=== PATIENT | female | born 1980 | race Caucasian/White ===

== ENCOUNTER 2023-03-03 13:34 | Emergency (ER) | payer OTHER, SELFPAY ==
[2023-03-03 13:54] VITALS: BP 183/122; PULSE 92; RESP 20; TEMP 37; O2SAT 98; BMI 35.7
[2023-03-03 14:07] VITALS: O2SAT 97
--- NOTE | 2023-03-03 14:08 | CRLHL7_ITS ---
For Patients: As a result of the Century Cures Act, medical imaging exams and procedure reports are released immediately into your electronic medical record. You may view this report before your referring provider. If you have questions, please contact your health care provider. INDICATION: Elevated blood pressure; had pressures ; Facial tingling. Comparison : None. TECHNIQUE: CT head without intravenous contrast; coronal sagittal reformats. FINDINGS: No intracranial hemorrhage. No mass lesions. No evidence of shift of the midline structures. The calvarium is unremarkable. the ventricular system, the subarachnoid cisterns and the cerebral sulci are unremarkable. IMPRESSION: Negative unenhanced head CT. Please note that all CT scans at this facility use dose modulation, iterative reconstruction, and/or weight-based dosing when appropriate to reduce radiation dose to as low as reasonably achievable. Dictated by Lupe Kirkpatrick MD @ 03/03/2023 3:13:47 PM (Electronically Signed)
--- NOTE | 2023-03-03 14:08 | CRLHL7_ITS ---
For Patients: As a result of the Century Cures Act, medical imaging exams and procedure reports are released immediately into your electronic medical record. You may view this report before your referring provider. If you have questions, please contact your health care provider. INDICATION: Elevated blood pressure. TECHNIQUE: Chest 1 view(s) COMPARISON: None. FINDINGS: Cardiomediastinal silhouette and pulmonary vasculature are normal. No focal consolidation. No pleural effusion, no pneumothorax. No acute chest wall abnormality. IMPRESSION: Unremarkable chest radiograph. Dictated by Hipolito Toscano MD @ 03/03/2023 3:51:58 PM (Electronically Signed)
--- NOTE | 2023-03-03 14:09 | ED_ITS ---
HPI - General Adult General Time Seen by Provider: 14:09 Date Seen: 03/03/23 Chief complaint: Hypertension Stated complaint: Heart attack concern--chest pain, 202/130 BP Time Seen by Provider: 03/03/23 13:53 Source: patient and RN notes reviewed Mode of arrival: ambulatory Limitations: no limitations History of Present Illness HPI narrative: Patient is a 43-year-old female coming in with concern of an elevated blood pressure. She notes that she has had borderline high blood pressure for some time. She has been having some headaches, significant eye pressure bilaterally. She was seen spots. Today she started noting tingling all over her face. She checked her blood pressure herself and was 160/120, had a colleague check it for her and it was 202/130. She notes that she can bring it down with diet and exercise but that she is unhealthy. She also does suffer with migraines with auras. She does not note any incoordination numbness tingling in her extr emities. It was all over her face when she felt this today. She did feel like she had some chest pressure, palpitations but that is resolved. She is lying in exam room for in feels like she is improving. She notes her cholesterol has been borderline high. She does smoke. No diagnosis of diabetes. Her dad had his 1st heart attack at age 45. She has not been on blood pressure medicine before. She thinks she has cameron menopausal but is still getting periods. She does drink alcohol moderately about 3 times a week. Related Data Previous Rx's Medication Instructions Recorded duloxetine 30 mg capsule,delayed 30 mg PO QDAY #90 caps 08/11/22 release lisinopril 5 mg tablet 5 mg PO DAILY #30 tabs 03/03/23 Allergies Allergy/AdvReac Type Severity Reaction Status Date / Time penicillin V Allergy Mild Rash Verified 08/11/22 15:10 Review of Systems Status of ROS: Reports: 10 or more systems reviewed and unremarkable except as noted in History and below [facility] Surgical History History of section ?Z98.891 - History of uterine scar from previous surgery (ICD-10) Social History Narrative: Smoker- 1 to 5 cigs a day Depo contraception Smoking Status: Current every day smoker Non-prescribed substance use: denies use Little interest or pleasure in doing things: more than half the days Feeling down, depressed, or hopeless: not at all Exam Const: Vital Signs, click to edit/add: Vital Signs - 24 hr 03/03/23 13:54 03/03/23 14:07 03/03/23 16:27 Temperature 98.6 F Pulse Rate [Pulse Oximeter] 92 84 Respiratory Rate 20 17 Blood Pressure [Ri ght Upper Arm] 183/122 H 144/86 H Pulse Oximetry 98 97 97 Oxygen Delivery Me thod Room Air Documenting provider has reviewed patient's vital signs: yes Common normals: no apparent distress, oriented x3, no limitations, healthy appearing, alert and well nourished General appearance: cooperative, comfortable and well kempt Nutritional appearance: overweight HENMT: Common normals: normocephalic, head/scalp atraumatic, hearing grossly normal bilaterally, external ears normal and external nose normal Head and scalp: normocephalic and atraumatic Face and sinus: normal facial exam Nose: external nose normal External ear: external ears normal Eye: Common normals: PERRL, EOMs intact bilaterally, conjunctivae normal and no scleral icterus Conjunctiva: conjunctiva(e) normal Pupil: PERRL Neck & C-Spine: Common normals: full ROM, no lymphadenopathy, supple, no meningeal signs, no JVD and thyroid normal Thyroid: thyroid normal Resp: Common normals: normal respiratory effort, no retractions, no use of accessory muscles and clear to auscultation bilaterally Auscultation: clear to auscultation bilaterally Cardio: Common normals: no JVD, regular rate, regular rhythm, S1 normal heart sound, S2 normal heart sound, no gallops, no clicks and no murmurs Rate: regular rate Rhythm: regular rhythm Heart sounds: S1 normal and S2 normal GI: Common normals: Normal to inspection, nondistended, normoactive bowel sounds present, soft to palpation, non-tender, no hepatosplenomegaly and no masses Palpation: soft and no hepatosplenomegaly Extremity: Common normals: normal to inspection and no pedal edema Neuro: Common normals: oriented x3, CN's II-XII intact bilaterally, moves all extremities, no focal motor deficits and gait normal Sensorium/orientation: alert Meningeal signs: no meningeal signs Speech: speech normal Psych: Appearance: well kempt Course Course Hospital Course: Reviewed with patient that she certainly can have increased headache from blood pressure but there is no evidence of any [employer]IL [employer] focal deficits at this time. I do think that she should have a head CT still. If there were evidence of [employer] vascular disease, does change our management in the fact that would probably recommend anti day cholesterol, anti-platelet as well as intensive management of her blood pressure. Will be getting full complement of labs, EKG. She will be on cardiac monitoring and pulse oximetry here. Will monitor her blood pressure here. This is definitely time for her to consider lifestyle changes in management. I may recommend an antihypertensive medication based on her outcome here today. Will await our workup. Reevaluation(s) Reevaluation #1: Reviewed with patient her normal workup. She feels better and her blood press ure is now down to 140/92 after resting. We discussed antihypertensive medicines. She would prefer to go on something. She can try lifestyle modification with smoking cessation, heart healthy/low-sodium diet, exercise and weight loss. If she successful in all these lie cell changes, may be possible she can go off blood pressure medicine. She did share with me that she had HELLP syndrome with 1 of her pregnancies. Did review with her that that does put her at higher risk for hypertension. Time: 16:55 Vital Signs Vital signs: Initial Vital Signs Temperature 98.6 F 03/03/23 13:54 Temperature Source Temporal Artery Scan 03/03/23 13:54 Pulse Rate 92 03/03/23 13:54 Respiratory Rate 20 03/03/23 13:54 Respiratory Effort Normal 03/03/23 13:54 Respiratory Depth Normal 03/03/23 13:54 Respiratory Pattern Normal 03/03/23 13:54 Blood Pressure 183/122 H 03/03/23 13:54 Blood Pressure Mean 142 H 03/03/23 13:54 Pulse Oximetry 98 03/03/23 13:54 Oxygen Delivery Method Room Air 03/03/23 13:54 Vital Signs Temperature 98.6 F 03/03/23 13:54 Pulse Rate 92 03/03/23 13:54 Respiratory Rate 20 03/03/23 13:54 Blood Pressure 183/122 H 03/03/23 13:54 Pulse Oximetry 98 03/03/23 13:54 Oxygen Delivery Method Room Air 03/03/23 13:54 Temperature 98.6 F 03/03/23 13:54 Pulse Rate 84 03/03/23 16:27 Respiratory Rate 17 03/03/23 16:27 Blood Pressure 144/86 H 03/03/23 16:27 Pulse Oximetry 97 03/03/23 16:27 Oxygen Delivery Method Room Air 03/03/23 13:54 Medical Decision Making Lab Data Lab results reviewed: Yes I reviewed the patient's lab results Labs: Lab Results 03/03/23 Range/Units 14:36 WBC 9.16 (4.50-11.00) K/uL RBC 4.22 (4.00-5.20) m/uL Hgb 14.3 (12.0-16.0) gm/dL Hct 40.8 (33.0-51.0) % MCV 97 (80-100) fL MCH 34 (26-34) pg MCHC 35 (32-36) gm/dL RDW Coeff of Abelardo 12.5 (11.5-15.5) % Plt Count 310 (140-440) K/uL Neut % (Auto) 61.8 (42.0-72.0) % Lymph % (Auto) 29.1 (20-44) % [place] % (Auto) 6.8 (0.0-11.0) % Eos % (Auto) 1.0 (0.0-7.0) % Baso % (Auto) 0.4 (0.0-3.0) % Neut # (Auto) 5.66 (1.7-7.0) K/uL Lymph # (Auto) 2.67 (0.90-2.90) K/uL [place] # (Auto) 0.60 (0.00-0.90) K/UL Eos # (Auto) 0.09 (0.00-0.50) K/uL Baso # (Auto) 0.04 (0.00-0.30) K/uL Sodium 135 (135-149) mmol/L Potassium 3.5 L (3.6-5.1) mmol/L Chloride 104 (96-114) mmol/L Carbon Dioxide 25 (20-32) mmol/L BUN 13 (5-24) mg/dL Creatinine 0.5 (0.5-1.5) mg/dL Estimated Creat Clear 113.56 Estimated GFR 119 ml/min Glucose 99 (60-115) mg/dL Calcium 9.2 (8.4-10.6) mg/dL Total Bilirubin 0.3 (0.1-1.5) mg/dL AST 23 (12-35) U/L ALT 25 (4-35) U/L Alkaline Phosphatase 58 (40-150) U/L Troponin I < 0.01 L (0.01-0.04) ng/mL NT-Pro-B Natriuret Pep < 20 pg/mL Total Protein 7.2 (6.0-8.3) g/dL Albumin 4.4 (3.3-5.0) g/dL Imaging Data Chest x-ray: Attestation: I have reviewed the pertinent imaging results. My impression: No acute pathology on my preliminary review. Radiologist's impression: Patient: INDY CELESTE Facility:?[facility] Patient ID:?[id number] Site Patient ID:?[id number]. Site :?1980 Study:?XRay Chest 1 VIEW-03/03/2023 2:22:23 PM Ordering Physician:?Vlad Beach Final Report: INDICATION: Elevated blood pressure. TECHNIQUE: Chest 1 view(s) COMPARISON: None. FINDINGS: Cardiomediastinal silhouette and pulmonary vasculature are normal. No focal consolidation. No pleural effusion, no pneumothorax. No acute chest wall abnormality. IMPRESSION: Unremarkable chest radiograph. Dictated by Hipolito Toscano MD @ 03/03/2023 3:51:58 PM (Electronic Signature) CT scan - head: Attestation: I have reviewed the pertinent imaging results. My impression: I did not appreciate any acute pathology on my preliminary review. Radiologist's impression: Patient: INDY CELESTE Facility:?[facility] Patient ID:?[id number] Site Patient ID:?[id number]. Site :?1980 Study:?CT Head W/O-03/03/2023 2:21:27 PM Ordering Physician:Yousuf Beach Final Report: INDICATION: Elevated blood pressure; had pressures ; Facial tingling. Comparison : None. TECHNIQUE: CT head without intravenous contrast; coronal sagittal reformats. FINDINGS: No intracranial hemorrhage. No mass lesions. No evidence of shift of the midline structures. The calvarium is unremarkable. the ventricular system, the subarachnoid cisterns and the cerebral sulci are unremarkable. IMPRESSION: Negative unenhanced head CT. Please note that all CT scans at this facility use dose modulation, iterative reconstruction, and/or weight-based dosing when appropriate to reduce radiation dose to as low as reasonably achievable. Dictated by Lupe Kirkpatrick MD @ 03/03/2023 3:13:47 PM (Electronic Signature) ECG Data Attestation: I personally reviewed and interpreted this ECG as follows: (Normal sinus rhythm, 87 beats per minute. No ischemic changes. QT corrected 442 milliseconds.) Prior ECG tracings: not available for review Critical Care Time Critical Care Time Critical Care Time: No Discharge Plan Discharge Clinical Impression: Hypertension Patient Disposition: Home, Self-Care Condition: Improved Instructions: Heart Healthy Diet (ED), Low-Sodium Diet (ED), Hypertension (ED) Additional Instructions: Need to schedule follow-up appointment in clinic in about 2 weeks time. You should come fasting to that appointment so that they can recheck a cholesterol panel if it is appropriate. Your chemistries with a basic metabolic panel needs to be rechecked at that time to recheck the kidney function and potassium. Try to quit smoking, talk to your primary care provider about this at your follow- up. Do recommend exercise, weight loss, low-sodium and heart healthy diet. We will start you on lisinopril 5 mg daily, may need to be increased over time. Activity Level: Activity as Tolerated Discharge Diet: Heart Healthy (2 gm sodium, low fat) Prescriptions: New lisinopril 5 mg tablet 5 mg PO DAILY Qty: 30 0RF No Action duloxetine 30 mg capsule,delayed release(DR/EC) 30 mg PO QDAY Qty: 90 3RF Follow Up/Referrals: Cassi Hendricks PA-C [Primary Care Provider] - Stand Alone Forms: [facility] Info Instructions
[2023-03-03 14:50] LABS: Basophils Absolute Auto 0.04 K/uL (0.00-0.30); Basophils Percent Auto 0.4 % (0.0-3.0); Eosinophils Absolute Auto 0.09 K/uL (0.00-0.50); Hematocrit 40.8 % (33.0-51.0); Hemoglobin* 14.3 gm/dL (12.0-16.0); Immature Granulocytes Abs Auto 0.08 K/uL (0.00-0.30); Immature Granulocytes Pct Auto 0.9 %; Lymphocytes Absolute Auto 2.67 K/uL (0.90-2.90); Lymphocytes Percent Auto 29.1 % (20-44); Mean Corpuscular HGB Conc 35 gm/dL (32-36); Mean Corpuscular Hemoglobin 34 pg (26-34); Mean Corpuscular Volume 97 fL (80-100); Monocytes Percent Auto 6.8 % (0.0-11.0); Neutrophils Absolute Auto 5.66 K/uL (1.7-7.0); Neutrophils Percent Auto 61.8 % (42.0-72.0); Platelet Count* 310 K/uL (140-440); RDW Coefficient of Variation % 12.5 % (11.5-15.5); Red Blood Count 4.22 m/uL (4.00-5.20); White Blood Count* 9.16 K/uL (4.50-11.00)
[2023-03-03 14:56] LABS: Slide Review Reflex No
[2023-03-03 15:00] LABS: Albumin* 4.4 g/dL (3.3-5.0); Chloride* 104 mmol/L (96-114); Sodium* 135 mmol/L (135-149)
[2023-03-03 15:01] LABS: Potassium* 3.5 mmol/L (3.6-5.1)
[2023-03-03 15:03] LABS: Alanine Aminotransferase* 25 U/L (4-35); Alkaline Phosphatase* 58 U/L (40-150); Aspartate Amino Transferase* 23 U/L (12-35); Bilirubin Total* 0.3 mg/dL (0.1-1.5); Blood Urea Nitrogen* 13 mg/dL (5-24); Carbon Dioxide* 25 mmol/L (20-32); Creatinine* 0.5 mg/dL (0.5-1.5); Est. Creatinine Clearance* 113.56; Estimated Glomerular Filt Rate 119 ml/min; Glucose* 99 mg/dL (60-115); Total Protein* 7.2 g/dL (6.0-8.3)
[2023-03-03 15:04] LABS: Calcium* 9.2 mg/dL (8.4-10.6)
[2023-03-03 15:14] LABS: NT Pro B Type NatriureticPept* < 20 pg/mL
[2023-03-03 15:37] LABS: Troponin I* < 0.01 ng/mL (0.01-0.04)
[2023-03-03 16:27] VITALS: BP 144/86; PULSE 84; RESP 17; O2SAT 97
== END 2023-03-03 17:08 | disposition home or self-care (01) ==
PROVIDERS: Emergency Provider Family Medicine; PCP Physician Assistant Medical
DX: I10 Essential (primary) hypertension (principal)
CPT/HCPCS: 36415; 70450; 71045; 80053; 83880; 84484; 85025; 93005; 94761; 99284; 99285

== ENCOUNTER 2023-05-21 00:17 | Emergency (ER) | payer OTHER, SELFPAY ==
[2023-05-21 00:35] VITALS: BP 133/83; PULSE 111; RESP 20; TEMP 35.6; O2SAT 95; BMI 36.6
--- NOTE | 2023-05-21 00:46 | CRLHL7_ITS ---
For Patients: As a result of the 21st Century Cures Act, medical imaging exams and procedure reports are released immediately into your electronic medical record. You may view this report before your referring provider. If you have questions, please contact your health care provider. INDICATION: Abdominal pain and hematuria. Abdominal pain and fall. Elevated BUN and creatinine, elevated white count. COMPARISON: None available. TECHNIQUE: CT examination of the abdomen and pelvis was performed with the uneventful intravenous administration of 98 cc of Isovue 370 while 3 mm thick axial sections were obtained from the lung bases through the pubic symphysis. Oral contrast was not administered. Please note that all CT scans at this facility use dose modulation, iterative reconstruction, and/or weight-based dosing when appropriate to reduce radiation dose to as low as reasonably achievable. FINDINGS: There is moderate ascites. The urinary bladder has thickening of its dome and a defect within the central portion of the dome measuring 2.1 x 1.6 centimeters, axial image 139 series 2 and coronal image 66 series 4. The defect allows free communication between the urinary bladder and the pelvic cavity, and the ascites is probably urinary ascites. There is mild mucosal thickening throughout the small bowel consistent with mild enteritis. This is probably enteritis secondary to the urinary ascites. In the abdomen, the liver, spleen, pancreas, and adrenals are normal in appearance. The kidneys are normal in appearance. The gallbladder is normal in appearance. The abdominal aorta is normal in caliber with no sign of dilatation. There is no sign of retroperitoneal mass or adenopathy. The stomach and right colon in the abdomen are normal in appearance. There is moderate diverticulosis of the descending colon with no sign of diverticulitis. In the pelvis, the appendix is nonvisualized, but there is no sign of an inflammatory process in the area of the appendix. There is moderate proximal sigmoid diverticulosis without evidence of diverticulitis. The rectum is otherwise normal in appearance. The left ovary has a 2.2 centimeter cyst. The right adnexal region and uterus are normal in appearance. The urinary bladder is normal in appearance. There is no sign of pelvic or inguinal mass or adenopathy. There is no sign of free air in the abdomen or pelvis. There is moderate posterior right basilar and lateral left basilar linear atelectasis. There is mild L2-3 disc degenerative disease. There is minimal scoliosis of the lumbar spine convex towards the left. IMPRESSION: Nothing seen to explain the patient`s abdominal pain, with no sign of bowel distension or inflammatory process involving the bowel. No sign of pancreatitis. There is a defect of the central dome of the urinary bladder associated with moderate ascites. The ascites is probably urinary ascites. Moderate mucosal thickening throughout the small bowel, probably enteritis secondary to urinary ascites. CT of the abdomen shows moderate diverticulosis of the descending colon with no sign of diverticulitis. CT of the pelvis shows moderate proximal sigmoid diverticulosis with no sign of diverticulitis. 2.2 centimeter left ovarian cyst. Please note that all CT scans at this facility use dose modulation, iterative reconstruction, and/or weight-based dosing when appropriate to reduce radiation dose to as low as reasonably achievable. Dictated by Margarito Santos MD @ 05/21/2023 2:26:21 AM (Electronically Signed)
--- NOTE | 2023-05-21 00:47 | ED.ABDPAIN ---
HPI - Abdominal Pain General Chief Complaint: Abdominal Pain Stated Complaint: abdominal pain, blood in her urine Time Seen by Provider: 05/21/23 00:30 History of Present Illness HPI narrative: Patient is a 43-year-old woman who comes in approximately 24 hours after falling outside her home while drinking wine. Patient landed flat on her abdomen and began having progressive abdominal pain since that time. She did not hit her head she did not lose consciousness she has no neck pain. No chest pain no shortness of breath orthopnea no PND. Patient had small bowel movement this morning and has been having bright red blood in her urine today. She has no bony pain no other significant symptoms. Patient is concerned about the abdominal pain and hematuria. Related Data Previous Rx's Medication Instructions Recorded duloxetine 30 mg capsule,delayed 30 mg PO QDAY #90 caps 08/11/22 release losartan 50 mg tablet 50 mg PO QDAY #90 tabs 04/06/23 Allergies Allergy/AdvReac Type Severity Reaction Status Date / Time penicillin V Allergy Mild Rash Verified 04/06/23 11:07 Review of Systems Status of ROS Reports: 10 or more systems reviewed and unremarkable except as noted in History and below [facility] Medical History HTN (hypertension) ?I10 - Essential (primary) hypertension (ICD-10) Surgical History History of section ?Z98.891 - History of uterine scar from previous surgery (ICD-10) Social History Narrative: Smoker- 1 to 5 cigs a day Depo contraception Smoking Status: Current some day smoker Non-prescribed substance use: denies use Little interest or pleasure in doing things: nearly every day Feeling down, depressed, or hopeless: more than half the days Exam Narrative: Exam Narrative: EXAM GENERAL: Patient appears comfortable and well. EYES: No scleral icterus. LYMPH: No supraclavicular or cervical lymphadenopathy. SKIN: Visible skin seen during exam normal or with benign process only. EXT: No dependent lower extremity pedal edema. HEART: Regular rate and rhythm with no murmurs, rubs, or gallops. LUNGS: Clear to auscultation bilaterally with no crackles or wheezes. ABD: Soft, non tender, non distended. PSYCH: Good eye contact, speech is not pressured. Const: Vital Signs, click to edit/add: Vital Signs - 24 hr 05/21/23 00:35 Temperature 96.1 F L Pulse Rate [Left P ulse Oximeter] 111 H Respiratory Rate 20 Blood Pressure [Ri ght Upper Arm] 133/83 Pulse Oximetry 95 Oxygen Delivery Me thod Room Air Course Course Hospital Course: Patient seen and examined. CBC comprehensive metabolic panel amylase UA CT abdomen pelvis ordered. Vital Signs Vital signs: Initial Vital Signs Temperature 96.1 F L 05/21/23 00:35 Temperature Source Temporal Artery Scan 05/21/23 00:35 Pulse Rate 111 H 05/21/23 00:35 Respiratory Rate 20 05/21/23 00:35 Blood Pressure 133/83 05/21/23 00:35 Blood Pressure Mean 99 05/21/23 00:35 Blood Pressure Position Semi-Fowlers 05/21/23 00:35 Pulse Oximetry 95 05/21/23 00:35 Oxygen Delivery Method Room Air 05/21/23 00:35 Vital Signs Temperature 96.1 F L 05/21/23 00:35 Pulse Rate 111 H 05/21/23 00:35 Respiratory Rate 20 05/21/23 00:35 Blood Pressure 133/83 05/21/23 00:35 Pulse Oximetry 95 05/21/23 00:35 Oxygen Delivery Method Room Air 05/21/23 00:35 Temperature 96.1 F L 05/21/23 00:35 Pulse Rate 111 H 05/21/23 00:35 Respiratory Rate 20 05/21/23 00:35 Blood Pressure 133/83 05/21/23 00:35 Pulse Oximetry 95 05/21/23 00:35 Oxygen Delivery Method Room Air 05/21/23 00:35 MDM - Abdominal Pain MDM Narrative Medical decision making narrative: Patient is a 43-year-old woman who fell 24 hours ago and presents with progressive abdominal pain. Patient has acute renal insufficiency noted on her lab work as well as leukocytosis. I did visit with the radiologist about her CT of the abdomen pelvis which shows a perforated bladder with a significant amount of urine in the peritoneum. I did send her urine for culture. Collected blood cultures x2 and I did dose her with cefepime as she is penicillin allergic. This time we are arranging transfer for definitive care. Patient is metabolically stable and has received a L of normal saline. Differential Diagnosis Differential diagnosis: Likely abdominal pain, acute appendicitis, calculus of kidney, constipation, diverticulitis, endometriosis, gastroenteritis, pancreatitis and small bowel obstruction Lab Data Labs: Lab Results 05/21/23 05/21/23 Range/Units 00:34 01:20 WBC 17.68 H (4.50-11.00) K/uL RBC 4.16 (4.00-5.20) m/uL Hgb 14.0 (12.0-16.0) gm/dL Hct 40.2 (33.0-51.0) % MCV 97 (80-100) fL MCH 34 (26-34) pg MCHC 35 (32-36) gm/dL RDW Coeff of Abelardo 12.9 (11.5-15.5) % Plt Count 382 (140-440) K/uL Neut % (Auto) 83.0 H (42.0-72.0) % Lymph % (Auto) 12.2 L (20-44) % [place] % (Auto) 4.3 (0.0-11.0) % Eos % (Auto) 0.2 (0.0-7.0) % Baso % (Auto) 0.1 (0.0-3.0) % Neut # (Auto) 14.70 H (1.7-7.0) K/uL Lymph # (Auto) 2.20 (0.90-2.90) K/uL [place] # (Auto) 0.80 (0.00-0.90) K/UL Eos # (Auto) 0.00 (0.00-0.50) K/uL Baso # (Auto) 0.00 (0.00-0.30) K/uL Abs Immat Gran (auto) 0.00 (0.00-0.30) K/uL Imm/Tot Granulo (auto) 0.2 % Sodium 131 L (135-149) mmol/L Potassium 3.9 (3.6-5.1) mmol/L Chloride 97 (96-114) mmol/L Carbon Dioxide 22 (20-32) mmol/L BUN 28 H (5-24) mg/dL Creatinine 3.8 H (0.5-1.5) mg/dL Estimated Creat Clear 14.94 Estimated GFR 14 ml/min Glucose 124 H (60-115) mg/dL Calcium 9.6 (8.4-10.6) mg/dL Total Bilirubin 0.6 (0.1-1.5) mg/dL AST 32 (12-35) U/L ALT 31 (4-35) U/L Alkaline Phosphatase 53 (40-150) U/L Total Protein 7.5 (6.0-8.3) g/dL Albumin 4.3 (3.3-5.0) g/dL Amylase 58 (18-89) U/L Urine Color Red A (Yellow) Urine Appearance Turbid A (Clear) Urine pH 6.0 (5.0-8.5) Ur Specific [place] 1.025 (1.000-1.030) Urine Protein 3+ A (Negative) Urine Glucose (UA) Negative (Negative) Urine Ketones 1+ A (Negative) Urine Blood 3+ A (Negative) Urine Nitrite Negative (Negative) Urine Bilirubin 1+ A (Negative) Urine Urobilinogen 0.2 (0.2-1.0) Ur Leukocyte Esterase 3+ A (Negative) Urine RBC >100 A (0-2) Urine WBC 25-50 A (0-5) Urine WBC Clumps None (None) Ur Squamous Epith Cells None (None-Few) Calcium Oxalate Crystal Moderate A (None) Urine Bacteria None (None) Discharge Plan Discharge Clinical Impression: Perforation of bladder Patient Disposition: Xfer Other Condition: Stable Activity Level: Other Discharge Diet: Other Prescriptions: No Action duloxetine 30 mg capsule,delayed release(DR/EC) 30 mg PO QDAY Qty: 90 3RF losartan 50 mg tablet 50 mg PO QDAY Qty: 90 0RF Follow Up/Referrals: Cassi Hendricks PARaymundoC [Primary Care Provider] - Stand Alone Forms: [employer] Info Instructions
[2023-05-21 00:51] LABS: Appearance Urine Turbid (Clear); Bilirubin Urine 1+ (Negative); Blood Urine 3+ (Negative); Color Urine Red (Yellow); Glucose Urine Negative (Negative); Ketones Urine 1+ (Negative); Leukocyte Esterase Urine 3+ (Negative); Nitrite Urine Negative (Negative); Protein Urine 3+ (Negative); Specific Gravity Urine 1.025 (1.000-1.030); Urobilinogen Urine 0.2 (0.2-1.0)
[2023-05-21 01:01] LABS: RBC Urine >100 (0-2); WBC Urine 25-50 (0-5)
[2023-05-21 01:02] LABS: Calcium Oxalate Crystals Urine Moderate
[2023-05-21 01:23] LABS: Basophils Percent Auto 0.1 % (0.0-3.0); Eosinophils Percent Auto 0.2 % (0.0-7.0); Hematocrit 40.2 % (33.0-51.0); Immature Granulocytes Pct Auto 0.2 %; Lymphocytes Percent Auto 12.2 % (20-44); Mean Corpuscular HGB Conc 35 gm/dL (32-36); Mean Corpuscular Hemoglobin 34 pg (26-34); Mean Corpuscular Volume 97 fL (80-100); Monocytes Percent Auto 4.3 % (0.0-11.0); Platelet Count* 382 K/uL (140-440); RDW Coefficient of Variation % 12.9 % (11.5-15.5); Red Blood Count 4.16 m/uL (4.00-5.20); White Blood Count* 17.68 K/uL (4.50-11.00)
[2023-05-21 01:25] LABS: Slide Review Reflex No
[2023-05-21 01:36] LABS: Albumin* 4.3 g/dL (3.3-5.0); Chloride* 97 mmol/L (96-114); Potassium* 3.9 mmol/L (3.6-5.1); Sodium* 131 mmol/L (135-149)
[2023-05-21 01:38] LABS: Amylase* 58 U/L (18-89); Carbon Dioxide* 22 mmol/L (20-32); Creatinine* 3.8 mg/dL (0.5-1.5); Est. Creatinine Clearance* 14.94; Estimated Glomerular Filt Rate 14 ml/min
[2023-05-21 01:39] LABS: Alanine Aminotransferase* 31 U/L (4-35); Alkaline Phosphatase* 53 U/L (40-150); Aspartate Amino Transferase* 32 U/L (12-35); Bilirubin Total* 0.6 mg/dL (0.1-1.5); Blood Urea Nitrogen* 28 mg/dL (5-24); Calcium* 9.6 mg/dL (8.4-10.6); Glucose* 124 mg/dL (60-115); Total Protein* 7.5 g/dL (6.0-8.3)
[2023-05-21 02:18] VITALS: BP 117/76; PULSE 91; RESP 18; TEMP 36.7; O2SAT 97
[2023-05-21] MEDS: 0.9 % SODIUM CHLORIDE 1000 ml 1,000 ML IV (02:19)
[2023-05-21] MEDS: KETOROLAC 30 MG/ML inj IVP (02:52)
[2023-05-21] MEDS: HYDROmorphone 0.5 mg/0.5 ml inj IVP (02:52)
[2023-05-21] MEDS: CEFEPIME HCL 1 GM in 0.9 % SODIUM CHLORIDE Mini-bag 100 ML IVPB (03:06)
[2023-05-21 03:18] VITALS: BP 117/76; PULSE 95; RESP 16; O2SAT 97
[2023-05-21 04:01] VITALS: BP 116/73; PULSE 90; RESP 16; O2SAT 98
--- NOTE | 2023-05-21 04:17 | ED.NURSE ---
Report to Jr Trinh accepting RN, and Antonietta Applications Support Lead. Patient left department via EMS cot en route to [facility] ED with all belongings.
--- NOTE | 2023-05-25 01:10 | ED.NURSE ---
opened chart to see where pt was transferred. called [facility] to give information about positive blood cultures. @ [phone]
== END 2023-05-21 04:19 | disposition other institution (70) ==
PROVIDERS: Emergency Provider Internal Medicine; PCP Physician Assistant Medical
DX: S37.29XA Other injury of bladder, initial encounter (principal); W19.XXXA Unspecified fall, initial encounter
CPT/HCPCS: 36415; 74177; 80053; 81001; 81003; 82150; 85025; 87040; 87076; 87086; 87181; 96365; 96375; 99284; J0692; J1170; J1885; J7030; Q9967

== ENCOUNTER 2023-05-21 04:08 | Outpatient (CLI) | payer OTHER, SELFPAY | END 2023-05-21 04:09 | disposition home or self-care (01) | LOC: AMB 05-30 18:48 | PROVIDERS: PCP Physician Assistant Medical; Visit Provider Internal Medicine | DX: R18.8 Other ascites (principal); K57.30 Diverticulosis of large intestine without perforation or abscess without bleeding; N83.202 Unspecified ovarian cyst, left side | CPT/HCPCS: A0425; A0426; A0433 ==

== ENCOUNTER 2023-09-27 14:33 | Outpatient (CLI) | payer OTHER, SELFPAY | END 2023-09-27 14:34 | disposition home or self-care (01) | LOC: NFLDREF 09-28 06:55 | PROVIDERS: PCP Physician Assistant Medical; Referring Provider Physician Assistant Medical; Visit Provider Physician Assistant Medical | DX: R30.0 Dysuria (principal); N30.00 Acute cystitis without hematuria | CPT/HCPCS: 87086; 87186 ==

== ENCOUNTER 2024-11-26 10:39 | Outpatient (CLI) | payer OTHER, SELFPAY | END 2024-11-26 10:40 | disposition home or self-care (01) | PROVIDERS: PCP Physician Assistant Medical; Visit Provider Family Medicine | DX: R00.0 Tachycardia, unspecified (principal) | CPT/HCPCS: 83835; 84439; 84443 ==

== ENCOUNTER 2024-12-04 17:11 | Outpatient (CLI) | payer OTHER, SELFPAY ==
--- NOTE | 2024-12-04 17:20 | CRLHL7_ITS ---
For Patients: As a result of the Cures Act, medical imaging exams and procedure reports are released immediately into your electronic medical record. You may view this report before your referring provider. If you have questions, please contact your health care provider. BILATERAL SCREENING MAMMOGRAM WITH COMPUTER-AIDED DETECTION AND TOMOSYNTHESIS TECHNIQUE: CC and MLO views were obtained. These mammographic images have been obtained using full-field digital technique. These mammographic images were interpreted with the benefit of computer-aided detection. Breast Tomosynthesis was used in this interpretation. COMPARISON FILM: 12/22/21, 08/30/19, 01/17/14. FINDINGS: There are scattered areas of fibroglandular density IMPRESSION: There is no radiographic evidence for malignancy. ASSESSMENT: BI-RADS Category 1: Negative RECOMMENDATION: Routine screening mammogram in 1 year. A lay language report of this examination will be provided to the patient. Shmuel Persaud M.D. Diagnostic Radiologist [email or web address] ADRIANA/kevin Transcribed: 3:02 p.kirstin brown/Dictated by: Shmuel Persaud MD @ 12/05/2024 10:21:00 AM (Electronically Signed)
== END 2024-12-04 17:12 | disposition home or self-care (01) ==
LOC: MAMMO 17:12
PROVIDERS: PCP Physician Assistant Medical; Visit Provider Registered Nurse
DX: Z12.31 Encounter for screening mammogram for malignant neoplasm of breast (principal)
CPT/HCPCS: 77063; 77067

== ENCOUNTER 2024-12-05 13:57 | Outpatient (CLI) | payer OTHER, SELFPAY | END 2024-12-05 13:58 | disposition home or self-care (01) | LOC: NFLDREF 12-10 18:54 | PROVIDERS: PCP Physician Assistant Medical; Referring Provider Physician Assistant Medical; Visit Provider Family Medicine | DX: R79.89 Other specified abnormal findings of blood chemistry (principal) | CPT/HCPCS: 83835 ==

== ENCOUNTER 2024-12-13 09:41 | Outpatient (CLI) | payer OTHER, SELFPAY | END 2024-12-13 09:42 | disposition home or self-care (01) | LOC: CT 09:42 | PROVIDERS: PCP Family Medicine; Visit Provider Family Medicine | DX: R79.89 Other specified abnormal findings of blood chemistry (principal) | CPT/HCPCS: 74150 ==